=== PATIENT | male | born 1985 | race Caucasian/White ===

== ENCOUNTER 2017-01-23 15:46 | Emergency (ER) | payer OTHER ==
[~2017-01-23] VITALS: Ht 175.3 cm; Wt 85.0 kg
[2017-01-23 15:48] VITALS: BP 161/98; PULSE 89; RESP 16; TEMP 98.2; O2SAT 98
[2017-01-23] MEDS ORDERED: ORPHENADRINE INJ 60 MG/2 ML AMP IM ONE (16:15)
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
[2017-01-23 17:35] LABS: BICARBONATE 26.6 MEQ/L (21.0-32.0)
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
[2017-01-23 17:44] LABS: POTASSIUM 4.3 MEQ/L (3.5-5.1)
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
[2017-01-23] MEDS ORDERED: IOHEXOL 350 MG/ML 10 ML VIAL (for RAD DIAG) IV ONE (18:07)
[2017-01-23 18:49] VITALS: BP 129/70
== END 2017-01-23 18:50 | disposition home or self-care (01) ==
LOC: NEPC 15:46
DX: S00.211A Abrasion of right eyelid and periocular area, initial encounter (principal); R51 Headache; V89.2XXA Person injured in unspecified motor-vehicle accident, traffic, initial encounter
CPT/HCPCS: 70450; 71260; 72125; 74177; 80048; 96372; 99285; J2360; Q9967